=== PATIENT | female | born 1990 ===

== ENCOUNTER 2024-08-22 10:55 | Day surgery (SDC) | payer OTHER ==
[2024-07-30 10:42] VITALS: BP 120/82
[~2024-08-22] VITALS: Ht 162.6 cm; Wt 86.2 kg
[2024-08-22] MEDS ORDERED: CEFAZOLIN SODIUM 1,000 MG VIAL ONE (17:12)
[2024-08-22] MEDS ORDERED: RINGERS SOLUTION,LACTATED 1,000 ML IV SCH (18:45)
[2024-08-22] MEDS ORDERED: IBU400 MG PO (18:46)
[2024-08-22] MEDS ORDERED: ZITHROMAX500 MG PO (18:46)
[2024-08-22] MEDS ORDERED: MORPHINE SULFATE 4 MG/ML VIAL IV ONE (20:25)
== END 2024-08-22 21:50 | disposition home or self-care (01) ==
LOC: CIR.AMB 10:55
PROVIDERS: ATTEND Obstetrics & Gynecology
DX: N84.0 Polyp of corpus uteri (principal); J45.909 Unspecified asthma, uncomplicated; K76.0 Fatty (change of) liver, not elsewhere classified